=== PATIENT | male | born 1990 | race Caucasian/White ===

== ENCOUNTER 2017-12-24 18:35 | Observation (INO) | payer MEDICAID, OTHER ==
[~2017-12-24] VITALS: Ht 165.1 cm; Wt 67.4 kg
[2017-12-24 19:30] LABS: BASOPHILS # (AUTO) 0.05 x10^3/uL (0-0.1); BASOPHILS % (AUTO) 1 % (0-1); EOSINOPHILS # (AUTO) 0.11 x10^3/uL (0-0.4); EOSINOPHILS % (AUTO) 1 % (1-7); LYMPHOCYTES # (AUTO) 1.78 x10^3/uL (1-3.4); LYMPHOCYTES % (AUTO) 17 % (22-44); MD NO; MEAN CORPUSCULAR HEMOGLOBIN 31.4 pg (27.5-34.5); MEAN CORPUSCULAR HGB CONC 33.9 g/dL (33.2-36.2); MEAN CORPUSCULAR VOLUME 92.6 fL (81-97); MONOCYTES # (AUTO) 0.74 x10^3/uL (0.2-0.8); MONOCYTES % (AUTO) 7 % (2-9); NEUTROPHILS # (AUTO) 7.74 x10^3/uL (1.8-6.8); NEUTROPHILS % (AUTO) 74 % (42-75); PLATELET COUNT 193 x10^3/uL (130-400); RED BLOOD COUNT 5.36 x10^6/uL (4.38-5.82); RED CELL DISTRIBUTION WIDTH 12.6 % (9.4-14.8)
[2017-12-24 19:36] LABS: MICROSCOPIC AUTO
[2017-12-24 19:37] LABS: ALANINE AMINOTRANSFERASE 16 U/L (12-78); ALBUMIN 3.9 g/dL (3.4-5.0); ANION GAP 6 mmol/L (5-15); CALCIUM 8.9 mg/dL (8.5-10.1); CHLORIDE 105 mmol/L (98-107); CREATININE 1.08 mg/dL (0.7-1.3)
[2017-12-24 19:39] LABS: ALKALINE PHOSPHATASE 85 U/L (45-117); BILIRUBIN,TOTAL 0.6 mg/dL (0.2-1.0); TOTAL PROTEIN 7.6 g/dL (6.4-8.2)
[2017-12-24 19:45] LABS: CULTURE INDICATED? NO
[2017-12-24] MEDS ORDERED: DICYCLOMINE 20 MG TABLET ONE (19:57)
[2017-12-24] MEDS ORDERED: MAALOX/HYOSCYAMINE/LIDOCAINE 45 ML BTL ONE (19:57)
[2017-12-24] MEDS ORDERED: MAALOX/HYOSCYAMINE/LIDOCAINE 45 ML BTL PO ONE (20:00)
[2017-12-24] MEDS ORDERED: DICYCLOMINE 20 MG TABLET PO ONE (20:00)
[2017-12-24 20:07] LABS: CLOSTRIDIUM DIFFICILE ANTIGEN NEGATIVE; CLOSTRIDIUM DIFFICILE TOXIN NEGATIVE (Negative)
[2017-12-24] MEDS ORDERED: MORPHINE SULFATE 4 MG/ML, 1ML ONE ×2 (21:34→23:30)
[2017-12-24] MEDS: MORPHINE SULFATE 4 MG/ML, 1ML IVPush PRN ×2 (21:49→23:37)
[2017-12-24] MEDS ORDERED: OMNIPAQUE 350 MG/ML, 100ML BOTTLE ONE (22:04)
[2017-12-24] MEDS ORDERED: CEFOTETAN PMX 1GM/50ML 50 ML IV ONE (23:00)
[2017-12-24] MEDS ORDERED: SODIUM CHLORIDE 0.9% 1,000 ML IV ONE (23:02)
[2017-12-24] MEDS ORDERED: MORPHINE SULFATE 4 MG/ML, 1ML IVPush PRN ×2 (23:30)
[2017-12-24] MEDS ORDERED: CEFOTETAN PMX 1GM/50ML 50 ML ONE (23:30)
[2017-12-24] MEDS ORDERED: ONDANSETRON 2MG/ML, 2ML IVPush PRN (23:30)
[2017-12-24] MEDS ORDERED: SODIUM CHLORIDE FLUSH 10ML SYR IVF PRN (23:30)
[2017-12-25] MEDS: MORPHINE SULFATE 4 MG/ML, 1ML IVPush PRN ×2 (00:43→04:14)
[2017-12-25] MEDS ORDERED: ONDANSETRON 2MG/ML, 2ML IVPush PRN (01:00)
[2017-12-25 02:00] VITALS: BP 125/84
[2017-12-25] MEDS: SODIUM CHLORIDE 0.9% 1,000 ML IV SCH ×2 (03:30→09:00)
[2017-12-25 04:27] VITALS: BP 125/85
[2017-12-25 06:56] VITALS: BP 101/65
[2017-12-25] MEDS ORDERED: EPINEPHRINE 1 MG/ML, 1ML ONE (07:26)
[2017-12-25] MEDS ORDERED: BUPIVACAINE 0.25% ONE (07:26)
[2017-12-25] MEDS ORDERED: FENTANYL PF 250 MCG/5ML ONE (08:09)
[2017-12-25] MEDS ORDERED: MIDAZOLAM 1 MG/ML, 2ML ONE (08:09)
[2017-12-25] MEDS ORDERED: ROCURONIUM 10MG/ML,5ML ONE (08:10)
[2017-12-25] MEDS ORDERED: LIDOCAINE-MPF 2% ,5ML ONE (08:10)
[2017-12-25] MEDS ORDERED: PROPOFOL 10 MG/ML, 20ML ONE (08:10)
[2017-12-25] MEDS ORDERED: PHENYLEPHRINE 10 MG/ML ONE (08:11)
[2017-12-25] MEDS ORDERED: CEFOTETAN PMX 2GM/50ML 50 ML ONE (08:11)
[2017-12-25] MEDS ORDERED: KETOROLAC 30 MG/1 ML ONE (08:12)
[2017-12-25] MEDS ORDERED: DEXAMETHASONE 4 MG/ML, 1ML ONE ×2 (08:12)
[2017-12-25] MEDS ORDERED: GABAPENTIN 300 MG CAPSULE ONE ×2 (08:22→10:52)
[2017-12-25] MEDS ORDERED: ONDANSETRON ODT 8 MG ONE ×2 (08:22→10:52)
[2017-12-25] MEDS ORDERED: ACETAMINOPHEN 500 MG TABLET ONE ×2 (08:23→10:52)
[2017-12-25] MEDS ORDERED: HYDROmorphone 1 MG/ML, 1ML IV PRN (09:00)
[2017-12-25] MEDS ORDERED: LABETALOL 5MG/ML, 20ML IV PRN (09:00)
[2017-12-25] MEDS ORDERED: hydrALAzine 20 MG/ML, 1ML IV PRN (09:00)
[2017-12-25] MEDS ORDERED: MEPERIDINE/PF 25MG/0.5ML IVPush PRN (09:00)
[2017-12-25] MEDS ORDERED: HALOPERIDOL 5 MG/ML IV PRN (09:00)
[2017-12-25] MEDS ORDERED: PROMETHAZINE 25 MG/ML, 1ML IV PRN (09:00)
[2017-12-25] MEDS ORDERED: FENTANYL PF 100 MCG/2ML IV PRN (09:00)
[2017-12-25] MEDS ORDERED: OXYcodone 5 MG/5 ML ORAL.SOL UDC PO PRN (09:00)
[2017-12-25] MEDS ORDERED: BUPIVACAINE/PF 0.25% INFIL ONE (09:13)
[2017-12-25] MEDS ORDERED: EPINEPHRINE 1 MG/ML, 1ML INFIL ONE (09:14)
[2017-12-25] MEDS ORDERED: GLYCOPYRROLATE 0.4 MG/2 ML, 2ML ONE (09:15)
[2017-12-25] MEDS ORDERED: NEOSTIGMINE 1 MG/ML, 10ML ONE (09:15)
[2017-12-25] MEDS ORDERED: OXYcodone 5 MG/5 ML ORAL.SOL UDC ONE (09:50)
[2017-12-25 10:36] VITALS: BP 115/72
[2017-12-25] MEDS ORDERED: MORPHINE SULFATE 4 MG/ML, 1ML IVPush PRN (11:00)
[2017-12-25] MEDS ORDERED: OXYC-302 PO (12:55)
[2017-12-25] MEDS ORDERED: POLY17PO5 PO (12:55)
[2017-12-25] MEDS ORDERED: AMOX1TAB64 PO (12:56)
== END 2017-12-25 13:15 | disposition home or self-care (01) ==
LOC: ED 23:19 → INTOOBSV 23:37 → EDIP 23:37 → 4NOR 23:40 → DCLOUNGE 12-25 13:00
PROVIDERS: ADMIT Colon & Rectal Surgery; ATTEND Colon & Rectal Surgery
DX: K35.80 Unspecified acute appendicitis (principal); K52.9 Noninfective gastroenteritis and colitis, unspecified; K21.9 Gastro-esophageal reflux disease without esophagitis
CPT/HCPCS: 36415; 44970; 74177; 76700; 80053; 81001; 83690; 85025; 87324; 88304; 89055; 96365; 96375; 96376; 99285; G0378; J0171; J1100; J1885; J2250; J2370; J2704; J2710; J3010; J3490; J7030; Q0162; Q9967; S0074